=== PATIENT | male | born 1940 | race Caucasian/White ===

== ENCOUNTER → 2018-12-04 | Outpatient (CLI) | payer MEDICARE, BC ==
--- NOTE | 2018-12-04 11:35 | RADIOLOGY REPORT (SQ) ---
EXAM DESCRIPTION: UGI SERIES COMPLETED DATE/TIME: 12/04/2018 9:31 am REASON FOR STUDY: DISEASE OF ESOPHAGUS, UNSPECIFIED,EARLY SATIETY K22.9 DISEASE OF ESOPHAGUS, UNSPE CIFIED R68.81 EARLY SATIETY COMPARISON: None. TECHNIQUE: Under fluoroscopic guidance, patient ingested effervescent granules followed by thick and thin barium. Fluoroscopic spot images and routine radiographic images acquired and stored on PACS. LIMITATIONS: None. FLUOROSCOPY TIME: FLUORO TIME: 2.9 MINUTES OF FLUOROSCOPY WAS USED. 31 images saved to PACS. FINDINGS: NEUROMUSCULAR COORDINATION OF SWALLOW: Normal. No aspiration. ESOPHAGEAL MOTILITY: Normal peristalsis. No esophageal spasm. ESOPHAGEAL MUCOSA: Normal mucosa without masses or ulceration. GASTRO-ESOPHAGEAL JUNCTION: No hiatal hernia or reflux. STOMACH: Poor distention of the fundus of the stomach with prominent mucosal folds noted. There is a bsence of mucosal folds through the antrum of the stomach. No ulcerations or masses are seen. GASTRIC OUTLET: No delay in emptying. Normal pylorus. DUODENAL BULB: Normal distention. No spasm or ulceration. DUODENUM: Mucosa normal. No extrinsic masses or malrotation. PROXIMAL SMALL BOWEL: Mucosa normal. No extrinsic masses or malrotation. NON-GI TRACT STRUCTURES: No significant finding. OTHER: No other significant finding. IMPRESSION: PROMINENT MUCOSAL FOLDS OF THE FUNDUS AND GREATER CURVATURE OF THE STOMACH AND LOSS OF H AUSTRAL FOLDS THROUGHOUT THE ANTRUM MAY INDICATE GASTRITIS. RECOMMEND ENDOSCOPY FOR FURTHER EVALUATI ON. COMMENT: Quality ID [id number]: Final reports for procedures using fluoroscopy that document radiation exp osure indices, or exposure time and number of fluorographic images (if radiation exposure indices are not available) TECHNICAL DOCUMENTATION: JOB ID: [id number] [employer]- All Rights Reserved Reading location - IP/workstation name: [email or web address]
== END ==
LOC: RAD 08:26
PROVIDERS: ATTEND Internal Medicine
DX: K22.9 Disease of esophagus, unspecified (principal); R68.81 Early satiety
CPT/HCPCS: 74247